=== PATIENT | female | born 1955 | race Caucasian/White ===

== ENCOUNTER 2021-04-07 04:33 | Emergency (ER) | payer OTHER, MEDICARE ==
[~2021-04-07 04:33] MED LIST: AMLODIPINE BESY10 MG PO; ASPIRIN325 M1 PO; ASPIRIN325 MG PO; COZAAR100 MG PO; EFFEXOR-XR 75 M75 MG PO; GOLYTELY SOLU4000 ML PO; HYDROCODON-ACE1 EAC6 PO; PRILOSEC20 MG PO; PROTONIX 40MG T40 MG PO; SPIRIVA 185 PUFFS/IN INH; TOPROL XL 50 MG50 MG PO; TRAZODONE 50MG50 MG PO; VENTOLIN HFA IN18 GM INH
== END 2021-04-07 08:50 | disposition other institution (70) ==
LOC: FER 04:33
DX: S06.5X0A Traumatic subdural hemorrhage without loss of consciousness, initial encounter (principal); S01.01XA Laceration without foreign body of scalp, initial encounter; I10 Essential (primary) hypertension; J44.9 Chronic obstructive pulmonary disease, unspecified; F17.210 Nicotine dependence, cigarettes, uncomplicated; Z79.02 Long term (current) use of antithrombotics/antiplatelets; Z86.73 Personal history of transient ischemic attack (TIA), and cerebral infarction without residual deficits; Z79.82 Long term (current) use of aspirin; Z79.899 Other long term (current) drug therapy; Z88.6 Allergy status to analgesic agent; W19.XXXA Unspecified fall, initial encounter; Y93.89 Activity, other specified; Y92.009 Unspecified place in unspecified non-institutional (private) residence as the place of occurrence of the external cause
CPT/HCPCS: 70450; 72125